=== PATIENT | male | born 1945 | race Caucasian/White ===

== ENCOUNTER 2017-12-14 16:26 | Emergency (ER) | payer MEDICARE, OTHER ==
[2017-12-14] MEDS ORDERED: Acetaminophen 500 MG TAB ONE ×2 (16:57→16:58)
--- NOTE | 2017-12-14 17:25 | RAD ---
RIGHT ANKLE THREE VIEWS: 12/14/17 HISTORY: 72-year-old male with history of pain following injury. Arthrosis and degenerative changes noted of the ankle joint. Minimal soft tissue swelling at the leve l of the ankle medially and laterally. No acute fracture or dislocation. Inferior calcaneal enthesoph yte. IMPRESSION: Degenerative and osteoarthrosis changes right ankle joint. POS: [facility]
--- NOTE | 2017-12-14 17:27 | RAD ---
FOUR VIEWS OF THE RIGHT KNEE 12/14/17 COMPARISON: None. HISTORY: Right knee injury. FINDINGS: There is mild to moderate medial and lateral compartment narrowing with osteophyte formation involvin g the medial femoral condyle and medial tibial plateau. There is mild to moderate posterior patellar osteophyte formation and associated patellofemoral joint space narrowing. Small knee joint effusion i s seen. No displaced fracture or dislocation. IMPRESSION: Multicompartment degenerative joint disease with trace knee joint effusion. No displaced fracture or dislocation. POS: [facility]
== END 2017-12-14 18:00 | disposition home or self-care (01) ==
LOC: MADERS 16:26
DX: S83.511A Sprain of anterior cruciate ligament of right knee, initial encounter (principal); S93.421A Sprain of deltoid ligament of right ankle, initial encounter; K21.9 Gastro-esophageal reflux disease without esophagitis; I10 Essential (primary) hypertension; W18.30XA Fall on same level, unspecified, initial encounter